=== PATIENT | male | born 1935 | race Caucasian/White ===

== ENCOUNTER 2018-08-26 14:00 | Outpatient (RCR) | payer MEDICARE, SELFPAY ==
[2018-08-26 15:39] LABS: Color, Urine Straw (Yellow); Glucose, Dipstick Normal (Normal); Ketone-Dipstick Negative (Negative); Leukocyte Esterase-Dipstick 500 /ul (Negative); Nitrite-Dipstick Negative (Negative); Occult Blood-Urine 150 /ul (Negative); Protein-Dipstick 500 mg/dl (Negative); Urine Bilirubin Dipstick Negative (Negative); Urine Clarity Turbid (Clear); Urine Urobilinogen Normal (Normal)
== END 2018-09-12 23:59 ==
LOC: HHLAB 14:00
PROVIDERS: Referring Provider Family Medicine; Visit Provider Family Medicine
DX: I10 Essential (primary) hypertension (principal); R33.9 Retention of urine, unspecified; Z46.6 Encounter for fitting and adjustment of urinary device
CPT/HCPCS: 81002; 87086; 87088; 87186

== ENCOUNTER 2021-11-08 16:38 | Outpatient (CLI) | payer MEDICARE, SELFPAY ==
[2021-11-08 17:15] LABS: Mucous, Urine 0 SEEN /hpf (<or=2+)
[2021-11-08 17:35] LABS: Color, Urine Yellow (Yellow); Glucose, Dipstick Normal (Normal); Ketone-Dipstick Negative (Negative); Leukocyte Esterase-Dipstick 500 /ul (Negative); Nitrite-Dipstick Positive (Negative); Occult Blood-Urine 50 /ul (Negative); Protein-Dipstick 100 mg/dl (Negative); Specific Gravity, Urine 1.015 (1.002-1.030); Urine Bilirubin Dipstick Negative (Negative); Urine Clarity Cloudy (Clear); Urine Urobilinogen Normal (Normal); Urine pH 6.5 (5.0 - 8.0)
[2021-11-08 17:52] LABS: Bacteria 4+ /hpf (None Seen); Red Blood Cells-Urine 5-10 SEEN /hpf (0-5); Squamous Epithelial Cells - UA 0-5 SEEN /hpf (0-5); White Blood Cells 50-100 SEEN /hpf (0-5)
== END 2021-11-08 23:59 | disposition short-term general hospital (02) ==
LOC: LAB 16:41 → LABSPEC 16:44
PROVIDERS: Visit Provider Family Medicine
DX: N40.1 Benign prostatic hyperplasia with lower urinary tract symptoms (principal)
CPT/HCPCS: 81001; 87086; 87088; 87186